=== PATIENT | female | born 1935 | race Asian ===

== ENCOUNTER 2022-02-01 16:26 | Outpatient (CLI) | payer MEDICARE, SELFPAY ==
[2022-02-01 17:22] LABS: INR 2.59 (0.91-1.10); Prothrombin Time 28.2 Seconds
== END 2022-02-01 16:27 | disposition home or self-care (01) ==
LOC: NFLDREF 16:26
PROVIDERS: PCP Internal Medicine; Visit Provider Internal Medicine
DX: I48.91 Unspecified atrial fibrillation (principal)
CPT/HCPCS: 85610

== ENCOUNTER 2022-11-07 16:36 | Outpatient (CLI) | payer MEDICARE, SELFPAY | END 2022-11-07 16:37 | disposition home or self-care (01) | PROVIDERS: PCP Internal Medicine; Visit Provider Internal Medicine | DX: I10 Essential (primary) hypertension (principal); E78.5 Hyperlipidemia, unspecified; I50.9 Heart failure, unspecified; I48.91 Unspecified atrial fibrillation | CPT/HCPCS: 80053; 80061; 85610 ==

== ENCOUNTER 2023-11-25 15:17 | Outpatient (CLI) | payer MEDICARE, SELFPAY ==
--- OUTSIDE RECORDS SUMMARY | 2023-11-25 15:21 | XMS_ITS | Encounter Summary ---
Author Organization [facility] Address [address] [place] [id number] Care Team Providers Care Calker Name Role Phone Elsewhere, Pcp Primary Care Provider Unavailabl e Encounter Details Date Type Department Care Team (Latest Contact Info) Description 09/13/2023 10:10 AM CDT - 09/13/2023 12:15 PM T Hospital Encounter Department of Laboratory Medicine and Pathology, [facility] in [place], [place] [address] [place] [address] Agnieszka Jimenez M.B.BKongS., M.H.S. 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 More than three times a week 04/01/2021 How often do you get togethe r with friends or relatives? Once a week 04/01/2021 How often do you attend [facility] or church services? 1 to 4 times per year 04/01/2021 Do you belong to any clubs o r organizations such as hindu groups, unions, fraternal or athletic groups, or school groups? No 04/01/2021 How often do you attend meet ings of the clubs or organizations you belong to? Never 04/01/2021 Are you , , di vorced, , never , or living with a partner? 04/01/2021 AUDIT-C Answer Date Recorded Q1: How often do you have a drink containing alc ohol? Never 04/01/2021 Average Number of Drinks Not on file 021 Frequency of Binge Drinking Not on file 03/05 Overall Financial Resource Strain (CARDIA) Answe r Date Recorded How hard is it for you to pa y for the very basics like food, housing, medical care, and heating? Not hard at all 02/11/2023 PHQ-2 Answer Date Recorded PHQ-2 Score 0 11/14/2018 [facility] - Occupational Stress Questionnaire Answer Date Recorded Do you feel stress - tense, restless, nervous, or anxious, or unable to sleep at night because your mind is troubled all the time - these days? Only a little 04/01/2021 Exercise Vital Sign Answer Date Recorde d On average, how many days pe r week do you engage in moderate to strenuous exercise (like a brisk walk)? 0 days 02/11/2023 On average, how many minutes do you engage in exercise at this level? 0 min 02/11/2023 Hunger Vital Sign Answer Date Recorded Within the past 12 months, y ou worried that your food would run out before you got the money to buy more. Never true 02/12/20 23 Within the past 12 months, t he food you bought just didn't last and you didn't have money to get more. Never true 02/11/2023 PRAPARE - Transportation Answer Date Re corded In the past 12 months, has l ack of transportation kept you from medical appointments or from getting medications? No 02/01 In the past 12 months, has l ack of transportation kept you from meetings, work, or from getting things needed for daily living? No 02/11/2023 Nutrition Answer Date Recorded Nutrition: EVOO Fat Source No 02/11 On average, how many serving s of fruits and vegetables do you eat per day (serving size is equal to 1 cup or approximately the size of a tennis ball)? 0-2 02/11/2023 Dental Answer Date Recorded Dental: Regular Dentist No 06/19/19 Employment Answer Date Recorded Employment status Retired 02/11/2023 Housing Stability Answer Date Recorded What is your living situation today? I have a [facility] place to live 02/11/2023 Education Answer Date Recorded What is the highest level of school you have completed or the highest degree you have received? Master's degree (e.g., MA, MS, Ela, MEd, [employer], [employer]) 04/01/2021 Sex and Gender Information Value Date Recorded Sex Assigned at Female 01/22/2018 1:18 PM CDT Gender Identity Female 01/22/2018 1:18 PM CDT Sexual Orientation Straight 01/22/2018 1: 18 PM CDT documented as of this encounter Medications at Time of Discharge Medication Sig Dispensed Refills Start Date End Date acetaminophen (TYLENOL) 500 mg tablet Take 1,000 mg by mouth as needed for pain. Taken during the day and at bedtime as needed. Twice daily calcium carbonate (OS-BHARATH) 1,250 mg (500 mg calcium) tablet Take 1 tablet by mouth 2 (two) times a day. 06/03/2014 cholecalciferol, vitamin D3, 25 mcg (1,000 Unit) tablet Take 1,000 Units by mouth daily. 02/23/2019 denosumab (PROLIA) 60 mg/mL syringe Inject 60 mg under the skin every 6 (six) months. 12/11/2016 diclofenac sodium (VOLTAREN) 1 % gel Apply topically as needed. Apply to knees as needed. 02/01/2022 fluticasone propionate (FLONASE) 50 mcg/actuation nasal spray Administer 1 spray into each nostril daily. 02/11/2023 gabapentin (NEURONTIN) 300 mg capsule Take 1 capsule (300 mg total) by mouth at bedtime. 30 capsule 01/17/2018 mirtazapine (REMERON) 15 mg tablet Take 15 mg by mouth at bedtime. montelukast (SINGULAIR) 10 mg tablet Take 10 mg by mouth at bedtime. Currently not taking 02/01/2022 multivitamin tablet Take 1 tablet by mouth daily. simvastatin (ZOCOR) 20 mg tablet Take 20 mg by mouth at bedtime. documented as of this encounter Plan of Treatment Not on file documented as of this encounter Procedures Procedure Name Priority Date/Time Associated Diagnosis Comments IRON AND TOT IRON-BINDING CAPACITY, S/P Routine 09/13/2023 11:21 AM CDT Cardiomyopathy Ischemic Chronic Systolic (Congestive) Heart Failure (HCC) Hypertensive Heart And Chronic Kidney Disease With Heart Failure And Unspecified Stage Chronic Kidney Disease (HCC) Atrial Fibrillation Unspecified (HCC) CBC WITH DIFFERENTIAL, B Routine 09/13/2023 11:21 AM CDT Cardiomyopathy Ischemic Chronic Systolic (Congestive) Heart Failure (HCC) Hypertensive Heart And Chronic Kidney Disease With Heart Failure And Unspecified Stage Chronic Kidney Disease (HCC) Atrial Fibrillation Unspecified (HCC) COMPREHENSIVE METABOLIC PANEL, S/P Routine 09/13/2023 11:21 AM CDT Cardiomyopathy Ischemic Chronic Systolic (Congestive) Heart Failure (HCC) Hypertensive Heart And Chronic Kidney Disease With Heart Failure And Unspecified Stage Chronic Kidney Disease (HCC) Atrial Fibrillation Unspecified (HCC) documented in this encounter Results * Iron and Total Iron-Binding Capacity (09/13/2023 11:21 AM CDT) Iron 85 35 - 145 mcg/dL 09/13/2023 12:23 PM CDT DTL Total Iron Binding Capacity 275 250 - 400 mcg/dL 09/13/2023 12:23 PM CDT DTL Percent Saturation 31 14 - 50 % 09/13/2023 12:23 PM CDT DTL Blood (Blood, Venous) 09/13/2023 11:21 AM CDT 09/13/2023 12:00 PM CDT Agnieszka HoskinsBKongS., M.H.S. LAB BLOOD ADD-ON [facility] [address] [place] [address], [facility] [address] [place] [address] * (ABNORMAL) CBC with Differential, Blood (09/13/2023 11:21 AM CDT) Hemoglobin 12.8 11.6 - 15.0 g/dL 09/13/2023 11:51 AM CDT DTL Hematocrit 39.8 35.5 - 44.9 % 09/13/2023 11:51 AM CDT DTL Erythrocytes 4.12 3.92 - 5.13 x10(12)/L 09/13/2023 11:51 AM CDT DTL MCV 96.6 78.2 - 97.9 fL 09/13/2023 11:51 AM CDT DTL RBC Distrib Width 12.6 12.2 - 16.1 % 09/13/2023 11:51 AM CDT DTL Platelet Count 156(L) 157 - 371 x10(9)/L 09/13/2023 11:51 AM CDT DTL Leukocytes 4.6 3.4 - 9.6 x10(9)/L 09/13/2023 11:51 AM CDT DTL Neutrophils 2.95 1.56 - 6.45 x10(9)/L 09/13/2023 11:51 AM CDT DHPM Lymphocytes 1.14 0.95 - 3.07 x10(9)/L 09/13/2023 11:51 AM CDT DTL Monocytes 0.38 0.26 - 0.81 x10(9)/L 09/13/2023 11:51 AM CDT DTL Eosinophils 0.05 0.03 - 0.48 x10(9)/L 09/13/2023 11:51 AM CDT DTL Basophils 0.03 0.01 - 0.08 x10(9)/L 09/13/2023 11:51 AM CDT DTL Blood (Blood, Venous) 09/13/2023 11:21 AM CDT 09/13/2023 11:45 AM CDT Agnieszka AlfaroS., M.H.S. LAB BLOOD ADD-ON [address] [place] [address], [place] DTL [facility] [address] [place] [address] [facility] [address] [place] [address] * (ABNORMAL) Comprehensive Metabolic Panel (09/13/2023 11:21 AM CDT) [facility] Potassium, S 4.5 3.6 - 5.2 mmol/L 09/13/2023 12:23 PM CDT DTL Sodium, S 142 135 - 145 mmol/L 09/13/2023 12:23 PM CDT DTL Chloride, S 107 98 - 107 mmol/L 09/13/2023 12:23 PM CDT DTL Bicarbonate, S 28 22 - 29 mmol/L 09/13/2023 12:23 PM CDT DTL Anion Gap 7 7 - 15 09/13/2023 12:23 PM CDT DTL BUN (Blood Urea Nitrogen), S 25(H) 6 - 21 mg/dL 09/13/2023 12:23 PM CDT DTL Creatinine 1.01 0.59 - 1.04 mg/dL 09/13/2023 12:23 PM CDT DTL Estimated GFR (eGFR) 54(L) >=60 mL/min/BS A 09/13/2023 12:23 PM CDT DTL Comment: Estimated GFR calculated using the 2020 CKD_EPI creatinine equation. Calcium, Total, S 9.6 8.8 - 10.2 mg/dL 09/13/2023 12:23 PM CDT DTL Glucose, S 93 70 - 140 mg/dL 09/13/2023 12:23 PM CDT DTL Protein, Total, S 6.2(L) 6.3 - 7.9 g/dL 09/13/2023 12:23 PM CDT DTL Albumin, S 3.7 3.5 - 5.0 g/dL 09/13/2023 12:23 PM CDT DTL Aspartate Aminotransferase (AST), S 18 8 - 43 U/L 09/13/2023 12:23 PM CDT DTL Alkaline Phosphatase, S 64 35 - 104 U/L 09/13/2023 12:23 PM CDT DTL Alanine Aminotransferase (ALT), S 12 7 - 45 U/L 09/13/2023 12:23 PM CDT DTL Bilirubin, Total, S 1.0 0.0 - 1.2 mg/dL 09/13/2023 12:23 PM CDT DTL Blood (Blood, Venous) 09/13/2023 11:21 AM CDT 09/13/2023 12:00 PM CDT Agnieszka AlfaroS., M.H.S. LAB BLOOD ADD-ON [facility] [address] [place] [address], [facility] DTL [facility] [address] [place] [address] documented in this encounter Visit Diagnoses Diagnosis Cardiomyopathy Ischemic Chronic Systolic (Congestive) Heart Failure (HCC) Hypertensive Heart And Chronic Kidney Disease With Heart Failure And Unspecified Stage Chronic Kidney Disease (HCC) Atrial Fibrillation Unspecified (HCC) documented in this encounter Care Teams Calker Relationship Specialty Start Date End Date Elsewhere, Pcp PCP - General Family Medicine 01/14/18 documented as of this encounter
--- OUTSIDE RECORDS SUMMARY | 2023-11-25 15:21 | XMS_ITS | Clinical Summary ---
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 For routine questions regarding patient records, call [phone] during business hours, M-F 8:00 AM - 5:00 PM Central Time. Record requests for emergency care only can be directed to [phone] at any time.[facility] Allergies No known active allergies Medications Medication Sig Dispensed Refills Start Date End Date Status mirtazapine (REMERON) 15 mg tablet Take 15 mg by mouth at bedtime. Active simvastatin (ZOCOR) 20 mg tablet Take 20 mg by mouth at bedtime. Active multivitamin tablet Take 1 tablet by mouth daily. Active acetaminophen (TYLENOL) 500 mg tablet Take 1,000 mg by mouth as needed for pain. Taken during the day and at bedtime as needed. Twice daily Active gabapentin (NEURONTIN) 300 mg capsule Take 1 capsule (300 mg total) by mouth at bedtime. 30 capsule 01/17/2018 Active cholecalciferol, vitamin D3, 25 mcg (1,000 Unit) tablet Take 1,000 Units by mouth daily. 02/23/2019 Active calcium carbonate (OS-BHARATH) 1,250 mg (500 mg calcium) tablet Take 1 tablet by mouth 2 (two) times a day. 06/03/2014 Active denosumab (PROLIA) 60 mg/mL syringe Inject 60 mg under the skin every 6 (six) months. 12/11/2016 Active montelukast (SINGULAIR) 10 mg tablet Take 10 mg by mouth at bedtime. Currently not taking 02/01/2022 Active diclofenac sodium (VOLTAREN) 1 % gel Apply topically as needed. Apply to knees as needed. 02/01/2022 Active fluticasone propionate (FLONASE) 50 mcg/actuation nasal spray Administer 1 spray into each nostril daily. 02/11/2023 Active isosorbide mononitrate (IMDUR) 60 mg 24 hr tablet Take 1 tablet (60 mg total) by mouth daily. 90 tablet 3 09/13/2023 09/12/2024 Active Eliquis 2.5 mg tablet Take 1 tablet (2.5 mg total) by mouth 2 (two) times a day. 180 tablet 3 09/13/2023 09/12/2024 Active losartan (COZAAR) 100 mg tablet Take 1 tablet (100 mg total) by mouth daily. 90 tablet 3 09/13/2023 09/12/2024 Active carvediloL (COREG) 3.125 mg tabletIndications:C ardiomyopathy Ischemic,Chronic Systolic (Congestive) Heart Failure (HCC),Hypertensive Heart And Chronic Kidney Disease With Heart Failure And Unspecified Stage Chronic Kidney Disease (HCC),Atrial Fibrillation Unspecified (HCC) Take 1 tablet (3.125 mg total) by mouth 2 (two) times a day with meals. 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 Heart And Chron ic Kidney Disease With Heart Failure And Unspecified Stage Chronic Kidney Disease 01/13/2018 Overview: -likely element of white coat hypertension Regurgitation Mitral 01/13/2018 Last Assessment & Plan: -mitral valve prolapse, elected for conservative management -possible rheumatic changes/no known rheumatic heart disease history Atrial Fibrillation 01/13/2018 Overview: -persistent AF, asymptomatic Chronic Kidney Disease (CKD), Stage 3 Unspecifie d 01/13/2018 Dyslipidemia 01/13/2018 Osteoporosis 01/13/2018 Goiter Multinodular Nontoxic 03/20/2016 Overview: Overview: 12/2015: US (outside facility) 4.8 cm mixed solid/cystic R Thyroid nodule with rim calcification and 2 small 6 mm lesions in left lobe. FNA non diagnostic 09/2016: US 3.5 x 2.0x 2.8 cm R sided nodule, rest same Cardiomyopathy Ischemic 10/29/2013 Overview: -NYHA class 2 [facility] (Current) Anticoagulant Treatment 10/02 Encounters Date Type Department Care Team Description 09/13/2023 3:00 PM CDT Office Visit Department of Cardiovascular Medicine in [place], [place] [address] [place] [phone] Rob Cortes M.D. Failure Heart (HCC); Cardiomyopathy Ischemic; Chronic Systolic (Congestive) Heart Failure (HCC); Hypertensive Heart And Chronic Kidney Disease With Heart Failure And Unspecified Stage Chronic Kidney Disease (HCC); Atrial Fibrillation Unspecified (HCC) 09/13/2023 12:16 PM CDT - 09/13/2023 11:59 PM CDT Hospital Encounter Department of Cardiovascular Diseases in [place], [place] [address] [place] [phone] Rob Cortes M.D. Failure Heart (HCC) Discharge Disposition: Home or Self Care 09/13/2023 10:10 AM CDT - 09/13/2023 12:15 PM CDT Hospital Encounter Department of Laboratory Medicine and Pathology, [facility] in [place], [place] [address] [place] [address] Agnieszka Jimenez M.B.B.S., M.H.S. Cardiomyopathy Ischemic; Chronic Systolic (Congestive) Heart Failure (HCC); Hypertensive Heart And Chronic Kidney Disease With Heart Failure And Unspecified Stage Chronic Kidney Disease (HCC); Atrial Fibrillation Unspecified (HCC) Discharge Disposition: Home or Self Care from Last 3 Months Immunizations Name Administration Dates Next Due Influenza high dose QV(65 years or older) (PF) 0 01/31/2021 MCV4 (Menveo) 05/01/2019 PCV13 05/21/2016,01/14/2015 PPSV23 12/11/2016 SARS-COV-2 (COVID-19) - PFIZ ER (Discontinued)(12 years or older) 04/06/2021 Tdap 09/27/2015 Family History Medical History Relation Name Comments Heart disease Mother Relation Name Status Comments Mother Social History Tobacco Use Types Packs/Day Years Used Date Smoking Tobacco: Never Smokeless Tobacco: Never Tobacco Cessation:Counseling Given: Not Answered Alcohol Use Standard Drinks/Week Comments No 0 [...] week 04/01/2021 How often do you attend chur ch or mosque services? 1 to 4 times per year 04/01/2021 Do you belong to any clubs o r organizations such as bahai groups, unions, fraternal or athletic groups, or [...] Answer Date Recorded PHQ-2 Score 0 11/14/2018 [facility] [place] [facility] Occup[facility] - Occupational Stress Questionnaire Answer Date Recorded [...] money to buy more. Never true 02/12/20 Within the past 12 months, t he [...] your living situation today? I have a [facility] place to live 02/11/2023 Education Answer Date Recorded What is the highest level of school you have completed or the highest degree you have received? Master's degree (e.g., MA, MS, Ela, MEd, [employer], [employer]) 04/01/2021 Sex and Gender Information Value Date Recorded Sex Assigned at Female 01/22/2018 1:18 PM CDT Gender Identity Female 01/22/2018 1:18 PM CDT Sexual Orientation Straight 01/22/2018 1: 18 PM CDT Last Filed Vital Signs Vital Sign Reading Time Taken Comments Blood Pressure 123/74 09/13/2023 3:07 PM CDT Pulse 80 09/13/2023 3:07 PM CDT Temperature 36.4 ??C (97.52 ??F) 01/17/2018 2:42 PM C DT Respiratory Rate 16 01/17/2018 2:42 PM CDT Oxygen Saturation 95% 01/17/2018 2:42 PM CDT Inhaled Oxygen Concentration - - Weight 62.2 kg (137 lb 2 oz) 09/13/2023 3:07 PM CDT Height 146 cm (4' 9.48) 09/13/2023 3:07 PM CDT Body Mass Index 29.18 09/13/2023 3:07 PM CDT Plan of Treatment Health Maintenance Due Date Last Done Comments Zoster Vaccines (1 of 2) 08/05/1985 Depression Screening (Annual PHQ-2) 06/03/2023 COVID-19 Vaccine (2022-2 4 season) 2023 08/21/2023, 04/29/2022, 04/06/2021, Additional history exists Creatinine Level (Kidney Fun ction Test) 09/12/2024 09/13/2023, 2023, 08/05/2023, Additional history exists Potassium Level 09/12/2024 09/13/2023, 03/0 10/2023, 08/05/2023, Additional history exists Sodium Level 09/12/2024 09/13/2023, 03/0 10/2023, 08/05/2023, Additional history exists DTaP,Tdap,and Td Vaccines (2 - Td or Tdap) 09/26/2025 09/27/2015 Influenza Vaccine Completed 03/22/2023, , 01/31/2021, Additional history exists Pneumococcal vaccine (65+ years) Completed 08/20/2023, 12/11/2016, 05/21/2016, Additional history exists Fall Risk Screen (Annual) Completed 09/13/2023 Procedures Procedure Name Priority Date/Time Associated Diagnosis Comments (TTE) 2D ECHO DOPPLER COLOR Routine 09/13/2023 1:47 PM CDT Failure Heart (HCC) IRON AND TOT IRON-BINDING CAPACITY, S/P Routine [...] Kidney Disease (HCC) Atrial Fibrillation Unspecified (HCC) from Last 3 Months Results * (TTE) 2D ECHO DOPPLER COLOR (09/13/2023 1:47 PM CDT) Ejection Fraction 45 MC CV EIMS Sinus of Valsalva 30 MC CV EIMS Mid-Ascending Aorta 26 MC CV EIMS Wall Motion Score Index 1.94 MC CV EIMS LV Mass Index 80 MC CV EIMS LV End-Diastolic Diameter 52 MC CV EIMS LV End-Systolic Diameter 42 MC CV EIMS LV End-Diastolic Volume 109 MC CV EIMS LV End-Systolic Volume 60 MC CV EIMS MV E Velocity 1.2 MC CV EIMS MV e' Velocity Medial 0.06 MC CV EIMS MV e' Velocity Lateral 0.06 MC CV EIMS MV E/e' Medial 20 MC CV EIMS MV E/e' Lateral 20 MC CV EIMS Left ventricular stroke volume index 25 MC CV EIMS Cardiac Output 2.51 MC CV EIMS Cardiac Index 1.64 MC CV EIMS LV Interventricular Septal Wall Thickness 7 MC CV EIMS LV Posterior Wall Thickness 7 MC CV EIMS LV Relative Wall Thickness 27 MC CV EIMS Tricuspid Annular S? 0.08 MC CV EIMS TR Vmax 2.38 MC CV EIMS RA Pressure 5 MC CV EIMS RV Systolic Pressure 28 MC CV EIMS Estimated diastolic pulmonary artery pressure 10 MC CV EIMS AV mean gradient 2 MC CV EIMS Aortic valve area 1.94 MC CV EIMS Aortic Valve Dimensionless Index 0.68 MC CV EIMS LA Volume Index 96 MC CV EIMS Aortic Valve Systolic Peak Velocity 0.8 MC CV EIMS Anatomical Region Laterality Modality Echocardiography 09/13/2023 12:2 7 PM CDT Impressions 09/13/2023 2:04 PM CDT Status post stenting to the ostial, mid/proximal LAD (10/29/2013, elsewhere). LEFT VENTRICLE:Normal left ventricular chamber size. Normal left ventricular geometry. Calculated 2-D biplane volumetric left ventricular ejection fraction of 45% without the use of ultrasound enhancing agent. Regional wall motion abnormalities were present (see wall motion graphics). Apical left ventricular aneurysm. Normal left ventricular filling pressure. RIGHT VENTRICLE:Normal right ventricular chamber size. Normal right ventricular systolic function. Estimated right ventricular systolic pressure 28 mmHg (right atrial pressure of 5 mmHg). ATRIA:Severely enlarged left atrial size. Left atrial volume index 96 ml/m2. Strain imaging examination performed to assess left atrial function. Global averaged left atrial biplane longitudinal peak systolic strain is abnormal at 7.0% (normal is greater than 35%). Severely enlarged right atrial size by visual estimate. CARDIAC VALVES:Trileaflet aortic valve. Thickened aortic valve. No aortic valve regurgitation. Mild mitral valve regurgitation. Normal pulmonary valve. Normal pulmonary valve systolic velocities. Mild-moderate pulmonary valve regurgitation. Normal tricuspid valve. Trivial tricuspid valve regurgitation. OTHER ECHO FINDINGS:Normal inferior vena cava size with normal inspiratory collapse (>50%). Normal sinus of Valsalva diameter of 30 mm. Normal mid ascending aorta diameter of 26 mm. Abdominal aorta not visualized. No atrial level shunt by color flow imaging. No ??pericardial effusion. For the complete report, see the Order-Level Documents. Narrative 09/13/2023 2:04 PM CDT For the complete report, see the Order-Level Documents. Hemodynamics Heart Rate: 65 BPM Blood Pressure: 126 / 80 mmHg ECG: Atrial fibrillation Final Impressions 1. Normal left ventricular chamber size. Regional wall motion abnormalities present (see graphics). Calculated ejection fraction 45%. 2. Left ventricular cardiac index 1.64 l/min/m2. 3. Normal left ventricular filling pressure based on RVSP. 4. Normal right ventricular chamber size with normal systolic function. Estimated right ventricular systolic pressure 28 mmHg. 5. Mild mitral valve regurgitation (functional). 6. Severely enlarged left atrial size; severe right atrial enlargement. 7. Normal mid ascending aorta diameter of 26 mm. 8. Normal inferior vena cava size with normal inspiratory collapse (>50%). 9. No ??pericardial effusion. 10. Compared to the report of 04/27/2022 the following changes have occurred: the degree of mitral regurgitation has decreased. ??Side by side comparison of images performed. Comments Although the color Doppler evaluation could suggest more MR, the CW signal was faint and the LV stroke volume by volumetric method is not compatible with significant regurgitation. WRM. Procedure Note Abdi Blue M.D. - 09/13/2023 For the complete report, see the Order-Level Documents. Hemodynamics Heart Rate: 65 BPM Blood Pressure: 126 / 80 mmHg ECG: Atrial fibrillation Final Impressions 1. Normal left ventricular chamber size. Regional wall motionabnormalities present (see graphics). Calculated ejection fraction 45%. 2. Left ventricular cardiac index 1.64 l/min/m2. 3. Normal left ventricular filling pressure based on RVSP. 4. Normal right ventricular chamber size with normal systolic function.Estimated right ventricular systolic pressure 28 mmHg. 5. Mild mitral valve regurgitation (functional). 6. Severely enlarged left atrial size; severe right atrial enlargement. 7. Normal mid ascending aorta diameter of 26 mm. 8. Normal inferior vena cava size with normal inspiratory collapse(>50%). 9. No pericardial effusion. 10. Compared to the report of 04/27/2022 the following changes haveoccurred: the degree of mitral regurgitation has decreased. Side by sidecomparison of images performed. Comments Although the color Doppler evaluation could suggest more MR, the CW signalwas faint and the LV stroke volume by volumetric method is not compatiblewith significant regurgitation. WRM. Findings Status post stenting to the ostial, mid/proximal LAD (10/29/2013,elsewhere). LEFT VENTRICLE:Normal left ventricular chamber size. Normal leftventricular geometry. Calculated 2-D biplane volumetric left ventricularejection fraction of 45% without the use of ultrasound enhancing agent.Regional wall motion abnormalities were present (see wall motiongraphics). Apical left ventricular aneurysm. Normal left ventricularfilling pressure. RIGHT VENTRICLE:Normal right ventricular chamber size. Normal rightventricular systolic function. Estimated right ventricular systolicpressure 28 mmHg (right atrial pressure of 5 mmHg). ATRIA:Severely enlarged left atrial size. Left atrial volume index 96ml/m2. Strain imaging examination performed to assess left atrialfunction. Global averaged left atrial biplane longitudinal peak systolicstrain is abnormal at 7.0% (normal is greater than 35%). Severely enlargedright atrial size by visual estimate. CARDIAC VALVES:Trileaflet aortic valve. Thickened aortic valve. No aorticvalve regurgitation. Mild mitral valve regurgitation. Normal pulmonaryvalve. Normal pulmonary valve systolic velocities. Mild-moderate pulmonaryvalve regurgitation. Normal tricuspid valve. Trivial tricuspid valveregurgitation. OTHER ECHO FINDINGS:Normal inferior vena cava size with normal inspiratorycollapse (>50%). Normal sinus of Valsalva diameter of 30 mm. Normal midascending aorta diameter of 26 mm. Abdominal aorta not visualized. Noatrial level shunt by color flow imaging. No pericardial effusion. For the complete report, see the Order-Level Documents. Rob Cortes M.D. CV ECHO PROCEDURES * Iron and Total Iron-Binding Capacity (09/13/2023 11:21 AM CDT) [facility] Iron 85 35 - 145 mcg/dL 09/13/2023 12:23 PM CDT DTL Total Iron Binding Capacity 275 250 - 400 mcg/dL 09/13/2023 12:23 PM CDT DTL Percent Saturation 31 14 - 50 % 09/13/2023 12:23 PM CDT DTL Blood (Blood, Venous) 09/13/2023 11:21 AM CDT 09/13/2023 12:00 PM CDT Agnieszka Hand., M.H.S. LAB BLOOD ADD-ON [facility] [address] [place] [address], [facility] [address] [place] [address] * (ABNORMAL) CBC with Differential, Blood (09/13/2023 11:21 AM CDT) [facility] Hemoglobin 12.8 11.6 - 15.0 g/dL 09/13/2023 [...] AM CDT 09/13/2023 11:45 AM CDT Agnieszka Hand., M.H.S. LAB BLOOD ADD-ON [facility] [address] [place] [address], [place] DTL [facility] [address] [place] [address] [facility] [address] [place] [address] * (ABNORMAL) Comprehensive Metabolic Panel (09/13/2023 11:21 AM CDT) [facility] Potassium, S 4.5 3.6 - 5.2 mmol/L [...] AM CDT 09/13/2023 12:00 PM CDT Agnieszka Hand., M.H.S. LAB BLOOD ADD-ON [facility] [address] [place] [address], [place] DTL [facility] [address] [place] [address] from Last 3 Months Advance Directives For more information, please contact: [phone] * Full Code (Latest Code Status on File) Date Activated Date Inactivated Comments 01/17/2018 10:34 AM Question Answer Comments Full Code: Discussed * Full Code Date Activated Date Inactivated Comments 01/13/2018 8:41 PM 01/17/2018 10:34 AM Question Answer Comments Full Code: Discussed Care Teams After [employer] Teacher Relationship Specialty Start Date End Date Elsewhere, Pcp PCP - General Family Medicine 01/14/18
--- OUTSIDE RECORDS SUMMARY | 2023-11-25 15:21 | XMS_ITS | Clinical Summary ---
Author Organization [employer] [facility] Address [place], [place] [address] Care Team Providers Care Rural Carrier Name Role Phone Siddharth Elizabeth Unavailable [phone] Yessy Yan MD Primary Care Provider [phone] Allergies Active Allergy Reactions Criticality Noted Date Comments Memantine *Unknown - Pt Doesn't Remember 11/27 Medications Medication Sig Dispensed Refills Start Date End Date Status metoprolol succinate (TOPROL XL) 25 mg Sustained-Release tabletIndications:vent ricular rate control in atrial fibrillation Take 1 tablet by mouth once daily. 0 09/29/2013 Active simvastatin (ZOCOR) 20 mg tabletIndications:hype rlipidemia Take 1 tablet by mouth at bedtime. 0 09/29/2013 Active Calcium carbonate (OYSTERSHELL CALCIUM) 500 mg tabletIndications:hypo calcemia prevention Take 1 tablet by mouth 2 times daily with meals. 0 09/29/2013 Active multivitamin (MVI) tabletIndications:elisabeth min deficiency prevention Take 1 tablet by mouth once daily. 0 09/29/2013 Active gabapentin (NEURONTIN) 300 mg capsuleIndications:nessa ropathic pain Take 300 mg by mouth once daily in the evening. 0 Active cholecalciferol (VITAMIN D) 1,000 unit tabletIndications:prev ention of vitamin D deficiency Take 1 tablet by mouth once daily. 0 02/23/2019 Active mirtazapine (REMERON) 15 mg tabletIndications:michael r depressive disorder Take 1 Tablet (15 mg) by mouth at bedtime. 1 11/24/2020 Active losartan (COZAAR) 100 mg tabletIndications:hype rtension Take 1 Tablet (100 mg) by mouth once daily. 90 Tablet 3 02/17/2021 Active isosorbide mononitrate (IMDUR) 30 mg extended release tablet 24 HourIndications:Hypert nesion Take 60 mg by mouth once daily. 0 09/12/2021 Active benzonatate (Tessalon Perles) 100 mg capsuleIndications:Inf luenza A Take 1 Capsule (100 mg) by mouth 3 times daily if needed for Cough. 2023 Active albuterol 0.083% (2.5 mg/3 mL) neb solutionIndications:In fluenza A Inhale 3 mL (2.5 mg) via a nebulizer every 4 hours if needed for Wheezing 1st choice. 2023 Active guaiFENesin 100 mg/5 mL liquidIndications:Infl uenza A Take 5 mL (100 mg) by mouth every 4 hours if needed for Expectoration. 2023 Active apixaban (ELIQUIS) 5 mg tabletIndications:prev ent thromboembolism in chronic atrial fibrillation Take 1 Tablet (5 mg) by mouth two times daily. 2023 Active Active Problems Problem Noted Date Diagnosed Date CAP (community acquired pneumonia) 2023 Influenza 08/02/2023 Acute respiratory insufficiency 08/02/2023 Chronic systolic heart failure 08/02/2023 Age-related osteoporosis wit hout current pathological fracture 09/18/2016 Overview: History of Osteoporosis, rheumatoid arthritis, compression fracture, lost 2 in, has yogurt, calcium, vD daily. vD 29 => 39, Calcium 9.1, Creatinine 1.15, PTH 67, ELP normal. Timed urine Calcium 134 mg 11/2015: DXA: T scores; Spine -1.0, Femoral neck, L -1.8, FRAX: Total 26%, Hip 6.91% Rx Prolia 12/2016: DXA: T scores; Spine +1.9, Femoral neck, L -1.8, R -3.2, Total Femur, L -1.6, R -2.8. (DJD Spine) 03/2021: DXA: T scores; Spine +2.4, Femoral neck, L -2.5, R -2.6, Total Femur, L -2.0, R -2.5. 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 FNA non diagnostic 09/2016: US 3.5 x 2.0 x 2.8 cm R sided nodule, rest same 02/2019: 3.4 x 2.1 x 2.7 cm, T1-RADS 4. mid right lobe (no change since 2015) 10/2022: Right mid to lower lobe nodule measuring 3.9 x 3.0 x 2.4 cm. Solid. Peripheral (rim) calcifications. TI-RADS 4. Lower left lobe nodule 0.6 x 0.4 x 0.5 cm, solid, TI-RADS 4 Heart failure, left, with LVEF 31-40% 10/29/2013 CAD (coronary artery disease) 10/29/2013 CKD (chronic kidney disease) stage 2, GFR 60-89 ml/min 10/29/2013 Hypertension 10/29/2013 Dyslipidemia 10/29/2013 Atrial fibrillation 10/29/2013 Chronic anticoagulation 10/29/2013 S/P coronary angiogram with PTCA and placement of drug-eluting stents to the ostial, mid/proximal LAD 10/29/2013 Mitral regurgitation 10/08/2013 Encounters Date Type Department Care Team Description 10/17/2023 Telephone [facility] [place] [facility] [address] [place] [address] Remedios Cassidy DO Injection (Medication) (Prolia) from Last 3 Months Immunizations Name Administration Dates Next Due COVID-19 vaccine (Alex and Ani 30mcg/0.3mL) P F, MDV 08/23/2020,08/02/2020 Influenza, Inactivated AIIV4 (Age 65+ Years) Preserv Free 03/21/2022 Social History Tobacco Use Types Packs/Day Years Used Date Smoking Tobacco: Never Smokeless Tobacco: Former Tobacco Cessation:Counseling Given: Yes Alcohol Use Standard Drinks/Week Comments No 0 (1 standard drink = 0.6 oz pur e alcohol) Social Connections Answer Date Recorded Frequency of Communication with Friends and Fami ly Not on file 06/03/2021 Financial Resource Strain Answer Date R ecorded Difficulty of Paying Living Expenses Not on file 06/03/2021 Difficulty of Paying Living Expenses Not on file 06/03/2021 Sex and Gender Information Value Date Recorded Sex Assigned at Not on file Gender Identity Not on file Sexual Orientation Not on file Obstetrics History Last Filed Vital Signs Vital Sign Reading Time Taken Comments Blood Pressure 123/67 2023 5:[address] [place] Pulse 59 2023 5:[address] [place] Temperature 37 ??C (98.6 ??F) 2023 8:[address] [place] Respiratory Rate 16 2023 5:[address] [place] Oxygen Saturation 95% 2023 1:[address] [place] Inhaled Oxygen Concentration - - Weight 63.5 kg (140 lb) 08/02/2023 2:[address] [place] Height 160 cm (5' 3) 08/02/2023 2:[address] [place] Body Mass Index 24.8 08/02/2023 2:[address] [place] Plan of Treatment Upcoming Encounters Date Type Department Care Team (Late st Contact Info) Description 02/18/2024 10:30 AM CDT Office Visit [facility] [address] [facility] [address] [place] [address] Remedios Cassidy DO [address] [place] [address] Health Maintenance Due Date Last Done Comments Pneumococcal series for age 65+ (1 of 2 - PCV) 08/05/1941 Tdap 08/05/1946 Depression screening for age 12+ 1947 Tetanus booster 1955 Zoster (shingles) series for age 50+ (1 of 2) 08/05/1985 Medicare Wellness for age 65+ 08/05/2000 BMI (ht and wt on same day) for age 18+ 02/17/2022 02/17/2021, 11/24/2020, 08/08/2017, Additional history exists COVID-19 vaccine series ( season) 2023 04/29/2022, 04/06/2021, 08/23/2020, Additional history exists Influenza for age 65+ 02/02/2024 03/21/2022 , 03/09/2016 [facility] DEXA/DXA scan for age 65+ Completed 03/13/2021, Procedures Procedure Name Priority Date/Time Associated Diagnosis Comments XR DXA BONE DENSITY 2 SITES AXIAL Routine 03/13/2021 4:22 PM CDT Age-related osteoporosis without current pathological fracture from Last 3 Months or Most Recently Relevant to Health Maintenance Results * XR DXA BONE DENSITY 2 SITES AXIAL (03/13/2021 4:22 PM CDT) Anatomical Region Laterality Modality Spine, HIPS, HIPL, HIPR Computed Radiography Impressions 03/14/2021 7:05 AM CDT Osteoporosis. RECOMMENDATIONS: The National Osteoporosis Foundation recommends pharmacologic treatment for patients with T-scores of -2.5 or less, patients with prior history of fragility fractures, or patients with 10-year probability of greater than 3% at hips or greater than 20% of suffering major osteoporotic fractures. Recommend continued optimization of calcium and vitamin D intake through dietary means and/or supplementation and regular exercise. Continue current Denosumab (Prolia) medication treatment. ?? Jose Quiles MD 03/14/2021 7:05 AM Narrative 03/14/2021 7:05 AM CDT For Patients: Results are automatically released to your [employer] account once available, in compliance with federal regulations. This means that you may see your results before your provider has had a chance to review them. Please allow 2-3 business days for your provider to comment on the results. XR DXA Bone Mineral Density (BMD) EXAM LOCATION: [facility] [address] [facility] [address] [facility] [id number] PATIENT NAME: Enzo Barrow DATE OF : 1935 EXAM DATE: 03/13/2021 REQUESTING PROVIDER: Rajendra Cassidy MBBS GENDER AT : female HEIGHT: 5' 4 (02/17/2021) WEIGHT: ??147 lb (03/13/2021) MENOPAUSAL STATUS: Postmenopausal RACE/ETHNICITY: RISK FACTORS: Family History of Osteoporosis, Height Loss (2 inches or more) and History of Fragility Fracture (at a major site) CURRENT MEDICATION FOR BONE LOSS: Denosumab (Prolia) INDICATION: Follow-up of existing osteoporosis COMPARISON DATE(S): None DXA scans are compared to prior studies for a patient only when the two (or more) studies were performed on the same scanner. It is not possible to compare data generated on one scanner to data from another because there are not standards in DXA equipment. This applies even if the two scanners are made by the same retail sales teammate. PROCEDURE: Dual-energy x-ray absorptiometry performed with routine technique. Reporting is completed in the form of a T-score. The T-score represents the standard deviation from peak bone mass based on young healthy adult. A Z-score is used for diagnosis in premenopausal women, and for men under the age of 50. FINDINGS: RESULT LUMBAR SPINE L1 - L4 BMD: 1.474 g/cm2 T-Score: + 2.4 Z-Score: + 4.1 Marked sclerotic changes increase measured bone mineral density at this site. RESULTS FEMUR Left femoral neck BMD: 0.688 g/cm2 T-Score: - 2.5 Z-Score: - 0.3 Right femoral neck BMD: 0.670 g/cm2 T-Score: - 2.6 Z-Score: - 0.4 Left hip BMD: 0.751 g/cm2 T-Score: - 2.0 Z-Score: + 0.1 Right hip BMD: 0.689 g/cm2 T-Score: - 2.5 Z-Score: - 0.4 ?? WHO criteria: Normal: T-score at or above -1 SD Osteopenia: T-score between -1.1 and -2.4 SD Osteoporosis: T-score at or below -2.5 SD Rajendra CARRANZA DEXA from Last 3 Months or Most Recently Relevant to Health Maintenance Advance Directives * Full Code (Latest Code Status on File) Date Activated Date Inactivated Comments 08/02/2023 5:59 PM 2023 7:43 PM Question Answer Comments Code Status Discussion: Reviewed Preferences * Full Code Date Activated Date Inactivated Comments 08/02/2023 5:10 PM 08/02/2023 5:59 PM Question Answer Comments Code Status Discussion: Unable to Assess Preferences, Provider to review later * Full Code Date Activated Date Inactivated Comments 10/29/2013 9:25 AM 10/30/2013 4:38 PM * Full Code Date Activated Date Inactivated Comments 10/07/2013 8:48 AM 10/07/2013 11:26 PM Care Teams Rural Carrier Relationship Specialty Start Date End Date Yessy Yan MD [address] [place] [address] PCP - General 11/24/20 Siddharth Elizabeth MBBS Consulting Physician Cardiovascular Disease 09/29/13
--- OUTSIDE RECORDS SUMMARY | 2023-11-25 15:21 | XMS_ITS | Referral Summary ---
Author Organization [facility] Address [address] [place] [address] Care Team Providers Care Resident Intern Name Role Phone Elsewhere, Pcp Primary Care Provider Unavailabl e Source Comments Patient records contain information from all sites at [facility]. For routine questions regarding patient records, call [phone] during business hours, M-F 8:00 AM - 5:00 PM Central Time. Record requests for emergency care only can be directed to [phone] at any time.[facility] Encounters Date Type Department Care Team Description 09/13/2023 10:10 AM CDT - 09/13/2023 12:15 PM CDT Hospital Encounter Department of Laboratory Medicine and Pathology, [facility], in [place], [place] [address] [place] [address] Agnieszka Jimenez M.B.BKongS., M.H.S. Cardiomyopathy Ischemic; Chronic Systolic (Congestive) Heart Failure (HCC); Hypertensive Heart And Chronic Kidney Disease With Heart Failure And Unspecified Stage Chronic Kidney Disease (HCC); Atrial Fibrillation Unspecified (HCC) Discharge Disposition: Home or Self Care 09/13/2023 12:16 PM CDT - 09/13/2023 11:59 PM CDT Hospital Encounter Department of Cardiovascular Diseases in [place], [place] [address] [place] [address] Rob Cortes M.D. Failure Heart (HCC) Discharge Disposition: Home or Self Care 09/13/2023 3:00 PM CDT Office Visit Department of Cardiovascular Medicine in [place], [place] [address] [place] [address] oRb Cortes M.D. Failure Heart (HCC); Cardiomyopathy Ischemic; Chronic Systolic (Congestive) Heart Failure (HCC); Hypertensive Heart And Chronic Kidney Disease With Heart Failure And Unspecified Stage Chronic Kidney Disease (HCC); Atrial Fibrillation Unspecified (HCC) from Last 3 Months Allergies No known active allergies Medications Medication [...] Back 01/13/2018 Atherosclerotic Heart Diseas e Of [place] Coronary Artery Without Angina Pectoris 01/13/2018 Hypertensive [...] Cardiomyopathy Ischemic 10/29/2013 Overview: -NYHA class 2 Senior Care (Current) Anticoagulant Treatment 10/02 Immunizations Name Administration Dates Next Due Influenza high dose QV(65 years or older) (PF) 0 01/31/2021 MCV4 (Menveo) 05/01/2019 PCV13 05/21/2016,01/14/2015 PPSV23 12/11/2016 SARS-COV-2 (COVID-19) - PFIZ ER (Discontinued)(12 years or older) 04/06/2021 Tdap 09/27/2015 Social History Tobacco Use Types Packs/Day Years [...] often do you attend chur ch or orthodoxy services? 1 to 4 times per year 04/01/2021 Do you belong to any clubs o r organizations such as baptism groups, unions, fraternal or athletic groups, or [...] Answer Date Recorded PHQ-2 Score 0 11/14/2018 [facility] of Occupat ional Health - Occupational Stress [...] your living situation today? I have a [facility] 02/11/2023 Education Answer Date Recorded What is the highest level of school you have completed or the highest degree you have received? Master's degree (e.g., MA, MS, Ela, MEd, LOAN COLLECTOR, [employer]) 04/01/2021 Sex and Gender Information Value [...] 09/13/2023 3:07 PM CDT Plan of Treatment Not on file Procedures Procedure Name Priority Date/Time Associated Diagnosis [...] CDT Agnieszka Hand., M.H.S. LAB BLOOD ADD-ON [facility] [address] [place] [address], [facility] DTL [facility] [address] [place] [address] * (ABNORMAL) CBC with Differential, Blood (09/13/2023 [...] CDT Agnieszka Hand., M.H.S. LAB BLOOD ADD-ON [facility] [address] [place] [address], [facility] DTL [facility] [address] [place] [address] [facility] [address] [place] [address] * (ABNORMAL) Comprehensive Metabolic Panel (09/13/2023 11:21 AM CDT) Pathologist [facility] Potassium, S 4.5 3.6 - 5.2 [...] CDT Agnieszka AlfaroS., M.H.S. LAB BLOOD ADD-ON [facility] [address] [place] [address], [place] DTL [facility] [address] [place] [address] from Last 3 Months Advance Directives For more information, please contact: [phone] * Full Code (Latest Code Status on File) Date Activated Date Inactivated Comments 01/17/2018 10:34 AM Question Answer Comments Full Code: Discussed * Full Code Date Activated Date Inactivated Comments 01/13/2018 8:41 PM 01/17/2018 10:34 AM Question Answer Comments Full Code: Discussed Care Teams Resident Intern Relationship Specialty Start Date End Date Elsewhere, Pcp PCP - General Family Medicine 01/14/18
--- OUTSIDE RECORDS SUMMARY | 2023-11-25 15:21 | XMS_ITS ---
Author Organization [facility] Address [address] [place] [address] Care Team Providers Care Horse Stud Worker Name Role Phone Unavailable Unavailable Unavailable Surgery Details Not on file Complications Check Surgery Details section. Procedure Estimated Blood Loss Check Surgery Details section. Procedure Findings Check Surgery Details section. Procedure Specimens Taken Check Surgery Details section.
--- OUTSIDE RECORDS SUMMARY | 2023-11-25 15:21 | XMS_ITS | Referral Summary ---
Author Organization [facility] Address [address] [place] [address] Care Team Providers Care Raw Hide Trimmer Name Role Phone [facility] Primary Care Prov ider Resolved Problems Problem Noted Date Diagnosed Date Resolved Date Lumbago 10/29/2017 03/03/2018 Social History Tobacco Use Types Packs/Day Years Used Date Smoking Tobacco: Never Assessed Sex and Gender Information Value Date Recorded Sex Assigned at Not on file Gender Identity Not on file Sexual Orientation Not on file Plan of Treatment Not on file Care Teams Raw Hide Trimmer Relationship Specialty Start Date End Date [address] [address] PCP - General 10/29/17
--- OUTSIDE RECORDS SUMMARY | 2023-11-25 15:21 | XMS_ITS | Clinical Summary ---
Author Organization [facility] Address [address] [place] [address] Care Team Providers Care Rv Repairer Name Role Phone [facility] Primary Care Prov ider Resolved Problems Problem Noted Date Diagnosed Date Resolved Date Lumbago 10/29/2017 03/03/2018 Social History Tobacco Use Types Packs/Day Years Used Date Smoking Tobacco: Never Assessed Sex and Gender Information Value Date Recorded Sex Assigned at Not on file Gender Identity Not on file Sexual Orientation Not on file Plan of Treatment Not on file Care Teams Rv Repairer Relationship Specialty Start Date End Date [address] [address] PCP - General 10/29/17
--- OUTSIDE RECORDS SUMMARY | 2023-11-25 15:22 | XMS_ITS | Encounter Summary ---
Author Organization [facility] Address [address] [place] [address] Care Team Providers Care Superintendent Overhead Distribution Name Role Phone Elsewhere, Pcp Primary Care Provider Unavailabl e Reason for Referral * Outpatient (Routine) - Closed Specialty Diagnoses / Procedures Referred By Contac t Referred To Contact Diagnoses Failure Heart (HCC) Procedures Echo Transthoracic (TTE) Rob Cortes M.D. [address] [place] [address] [facility] Referral ID Status Reason Start Date Expiration Date Visits Re quested Visits Authorized [id number] Closed 08/09/2023 08/08/2024 [address] Reason for Visit * Reason Onset Date Comments Echo Move Up Request 08/09/2023 Encounter Details Date Type Department Care Team (Latest Contact Info) Description 08/09/2023 Clinical Communication Department of Cardiovascular Medicine in [place], [place] [address] [place] [phone] Rob Cortes M.D. [address] [place] [phone] Echo Move Up Request Social History Tobacco Use Types Packs/Day Years [...] often do you attend chur ch or pentecostalism services? 1 to 4 times per year 04/01/2021 Do you belong to any clubs o r organizations such as hoahaoism groups, unions, fraternal or athletic groups, or [...] Answer Date Recorded PHQ-2 Score 0 11/14/2018 [facility] of Occupat ional Health - Occupational Stress [...] your living situation today? I have a [facility] place to live 02/11/2023 Education Answer Date Recorded What is the highest level of school you have completed or the highest degree you have received? Master's degree (e.g., MA, MS, Ela, MEd, COMMAND POST SUPERINTENDENT, [employer]) 04/01/2021 Sex and Gender Information Value Date Recorded Sex Assigned at Female 01/22/2018 1:18 PM CDT Gender Identity Female 01/22/2018 1:18 PM CDT Sexual Orientation Straight 01/22/2018 1: 18 PM CDT documented as of this encounter Plan of Treatment Not on file documented as of this encounter Results * (TTE) 2D ECHO DOPPLER COLOR [...] Documents. Rob Cortes M.D. CV ECHO PROCEDURES documented in this encounter Visit Diagnoses Diagnosis Failure Heart (HCC)- Primary Failure Heart (HCC) documented in this encounter Care Teams Superintendent Overhead Distribution Relationship Specialty Start Date End Date Elsewhere, Pcp PCP - General Family Medicine 01/14/18 documented as of this encounter
--- OUTSIDE RECORDS SUMMARY | 2023-11-25 15:22 | XMS_ITS | Clinical Summary ---
Author Organization [facility] Address [address] [place] [address] Care Team Providers Care Cotton Farmworker Name Role Phone Mariah Garcia MD Primary Care Provider [phone] Allergies Active Allergy Reactions Criticality Noted Date Comments Donepezil 02/14/2012 insomnia Memantine 02/14/2012 Head paresthesias insomnia Medications Medication Sig Dispensed Refills Start Date End Date Status CALCIUM CARBONATE (CALCIUM 500 ORAL) Take 2 Tabs by mouth Once Daily. 06/03/2014 Active Multivitamin Oral Cap Take 1 Tab by mouth at bedtime. 06/03/2014 Active Miscellaneous Medical Supply 1 Each by Misc.(Non-Drug; Combo Route) route as directed. Will need INR check every 1-4 weeks as indicated per INR 1 Each 0 04/12/2015 Active acetaminophen (TYLENOL) 500 mg oral Tab Take 2 Tabs by mouth three times a day as needed for Pain. 09/27/2015 Active Denosumab 60 mg/mL SubQ Syringe Inject 1 mL (60 mg) under the skin ONCE for 1 dose. Per endo clinic 1 Syringe 12/11/2016 Active warfarin (COUMADIN) 5 mg oral tablet TAKE 1 TABLET BY MOUTH ONCE DAILY. CHANGE DOSE PER INR 100 tablet 3 12/16/2019 Active clopidogrel (PLAVIX) 75 mg oral tablet TAKE 1 TABLET BY MOUTH ONCE DAILY. 90 tablet 1 06/20/2020 Active gabapentin (NEURONTIN) 300 mg oral capsule TAKE 1 CAPSULE (300 MG) BY MOUTH AT BEDTIME. IN ADDITION TO 100 MG IN AM, & 100 MG IN AFTERNOON 90 capsule 06/22/2020 Active losartan (COZAAR) 50 mg oral tablet Take 1 tablet (50 mg) by mouth at bedtime. 90 tablet 1 07/01/2020 Active furosemide (LASIX) 20 mg oral tablet Take 1 tablet (20 mg) by mouth once daily. 90 tablet 08/01/2020 Active metoprolol succinate, XL, (TOPROL XL) 25 mg oral extended release tablet 24 HR Take 1 tablet (25 mg) by mouth at bedtime. TAKE 1 TABLET BY MOUTH EVERY DAY 90 tablet 08/01/2020 Active mirtazapine (REMERON) 15 mg oral tabletIndications:Ester tobias depressive disorder, single episode, moderate (HCC) Take 1 tablet (15 mg) by mouth at bedtime. 90 tablet 08/01/2020 Active simvastatin (ZOCOR) 20 mg oral tablet TAKE 1 TABLET BY MOUTH EVERYDAY AT BEDTIME 90 tablet 08/01/2020 Active Active Problems Problem Noted Date Diagnosed Date Physical deconditioning 01/11/2019 Low back pain 05/22/2016 Major depressive disorder, single episode, moder ate 04/12/2015 Compression fracture of L1 lumbar vertebra 11/30 CAD (coronary artery disease) 11/07/2013 Overview: Per supervisor filling and packing , Dr. Elizabeth Mitral valve regurgitation 11/07/2013 Overview: Severe on echo 09/2013 Atrial fibrillation 09/23/2013 Overview: For procedures: -hold plavix and coumadin 5 days prior to procedure. -take baby asa daily while plavix and coumadin on hold - restart plavix, coumadin day after procedure -lovenox bridge after procedure until INR therapeutic CHF (congestive heart failure) 09/23/2013 Overview: EF 35% 09/2013 Dementia 10/17/2011 HTN (hypertension), benign 10/17/2011 Hyperlipidemia 10/17/2011 Osteoporosis 10/17/2011 Overview: Alendronate since 2009 Neuropathy 10/17/2011 Immunizations Name Administration Dates Next Due 2012-13 Fluzone, 3 Yrs & Old er (0.5 mL) 02/14/20122012-14 Fluzone High Dose, 6 5 Yrs & Older 03/24/2013 2014-15 Fluzone High Dose, 6 5 Yrs & Older 03/08/2014 Influenza 02/14/2012 Influenza High Dose 03/03/2016, 5,03/08/2014,03/24 Meningococcal MCV4O 05/01/2019 Pneumococcal PCV13 05/21/2016,01/14/2015 Pneumococcal PPSV23 12/11/2016 Tdap 09/27/2015 Family History Medical History Relation Comments Diabetes Father High Blood Pressure Father Stroke Father Heart Disease Mother mi 70's High Blood Pressure Mother Relation Status Comments Father Mother Social History Tobacco Use Types Packs/Day Years Used Date Smoking Tobacco: Never Smokeless Tobacco: Never Alcohol Use Standard Drinks/Week Comments No 0 (1 standard drink = 0.6 oz pur e alcohol) PHQ-2 Answer Date Recorded PHQ9 Total Score, calculated 0 Sex and Gender Information Value Date Recorded Sex Assigned at Not on file Gender Identity Not on file Sexual Orientation Not on file Last Filed Vital Signs Vital Sign Reading Time Taken Comments Blood Pressure 146/78 12/30/2018 12:40 PM CDT Pulse 55 12/30/2018 12:40 PM CDT Temperature 36.3 ??C (97.4 ??F) 12/30/2018 12:40 PM C DT Respiratory Rate 16 01/28/2015 1:00 PM CDT Oxygen Saturation 95% 12/30/2018 12:40 PM CDT Inhaled Oxygen Concentration - - Weight 74.9 kg (165 lb 3.2 oz) 12/30/2018 12:40 PM CDT Height 162.6 cm (5' 4) 12/30/2018 12:40 PM CDT Body Mass Index 28.36 12/30/2018 12:40 PM CDT Plan of Treatment Health Maintenance Due Date Last Done Comments Depression Follow-Up (PHQ-9) 08/05/1936 Zoster Vaccine (1 of 2) 08/05/1985 RSV 60+ Yrs (1 - 1-dose 60+ series) 1995 Yearly Review of HCD 12/30/2019 12/30/2018, 07/11/2017, 05/02/2016, Additional history exists COVID-19 Vaccine ( - 2022-2 4 season) 2023 Influenza Vaccine (Season Ended) 2024 04/01/2019, 03/19/2018, 03/30/2017, Additional history exists Adult Tetanus Booster 09/26/2025 09/27/2015 Pneumococcal 65+ Completed 12/11/2016, , 01/14/2015 Colonoscopy Discontinued Advance Directives For more information, please contact: [phone] * Full Code (Latest Code Status on File) Date Activated Date Inactivated Comments 12/02/2014 3:02 PM Question Answer Comments How was code status determined? PatientFamily * Full Code Date Activated Date Inactivated Comments 11/30/2014 1:19 PM 12/02/2014 3:02 PM Question Answer Comments How was code status determined? Patient Care Teams Cotton Farmworker Relationship Specialty Start Date End Date Mariah Garcia MD PCP - General Family Medicine 10/16/11 [facility] 12/11/16
--- OUTSIDE RECORDS SUMMARY | 2023-11-25 15:22 | XMS_ITS | Encounter Summary ---
Author Organization [facility] Address [address] [place] [address] Care Team Providers Care Pointing Machine Operator Name Role Phone Elsewhere, Pcp Primary Care Provider Unavailabl e Encounter Details Date Type Department Care Team (Latest Contact Info) Description 08/09/2023 Clinical Communication Department of Cardiovascular Medicine in [place], [place] [address] [place] [phone] Agnieszka Jimenez M.B.BKongS., M.H.S. [address] [place] [phone] Social History Tobacco Use Types Packs/Day Years [...] often do you attend chur ch or taoism services? 1 to 4 times per year 04/01/2021 Do you belong to any clubs o r organizations such as voodoo groups, unions, fraternal or athletic groups, or [...] Answer Date Recorded PHQ-2 Score 0 11/14/2018 [facility] - Occupational Stress Questionnaire Answer Date [...] Answer Date Recorded Dental: Regular Dentist No 01/17/20 23 Employment Answer Date Recorded Employment status Retired 02/11/2023 Housing Stability Answer Date Recorded What is your living situation today? I have a [facility] place to live 02/11/2023 Education Answer Date Recorded What is the highest level of school you have completed or the highest degree you have received? Master's degree (e.g., MA, MS, Ela, MEd, DOUGH MOLDER, [employer]RAH) 04/01/2021 Sex and Gender Information Value Date Recorded Sex Assigned at Female 01/22/2018 1:18 PM CDT Gender Identity Female 01/22/2018 1:18 PM CDT Sexual Orientation Straight 01/22/2018 1: 18 PM CDT documented as of this encounter Miscellaneous Notes * Telephone Encounter - Nilsa Villela - 08/09/2023 2:24 PM CST Emily Jimenez, Pt's daughter says pt hospitalized recently for pneumonia. Coming back for a follow up on 09/02 . Does she need an echo then? Labs are scheduled. When she was hospitalized they did only labs and xray.Please let us know. Thanks Nilsa.Radha RAGE SALES CONSULTANT documented in this encounter Plan of Treatment Not on file documented as of this encounter Visit Diagnoses Not on filedocumented in this encounter Care Teams Pointing Machine Operator Relationship Specialty Start Date End Date Elsewhere, Pcp PCP - General Family Medicine 01/14/18 documented as of this encounter
--- OUTSIDE RECORDS SUMMARY | 2023-11-25 15:22 | XMS_ITS | Referral Summary ---
Author Organization [facility] Address [address] [place] [address] Care Team Providers Care Clipper Automatic Name Role Phone Mariah Garcia MD Primary Care Provider [phone] Allergies Active Allergy Reactions Criticality Noted Date [...] CAD (coronary artery disease) 11/07/2013 Overview: Per merchant [facility] , Dr. Elizabeth Mitral valve regurgitation 11/07/2013 [...] 10/17/2011 Immunizations Name Administration Dates Next Due 2011- Fluzone, 3 Yrs & Old er (0.5 mL) 02/14/20122012-14 Fluzone High Dose, 6 5 Yrs & Older 03/24/20132013-15 Fluzone High Dose, 6 5 Yrs & Older 03/08/2014 Influenza 02/14/2012 Influenza High Dose 03/03/2016, 5,03/08/2014,03/24 Meningococcal MCV4O 05/01/2019 Pneumococcal PCV13 05/21/2016,01/14/2015 Pneumococcal PPSV23 12/11/2016 Tdap 09/27/2015 Social History Tobacco Use Types [...] 12/30/2018 12:40 PM CDT Plan of Treatment Not on file Insurance Payer Benefit Plan / Group Subscriber ID Effective Dates Phone Address Type MEDICA MEDICA DUAL SOLUTION/MSH O [id number] 2015-Pre sent [address] [address] [place] [address] Medicare Advantage [facility] MEDICARE [facility] MEDICARE [id number] 2008-Pre sent [phone] [employer] [address], [address] [place] [address] Medicare Advance Directives For more information, please contact: [phone] * Full Code (Latest Code Status on File) Date Activated Date Inactivated Comments 12/02/2014 3:02 PM Question Answer Comments How was code status determined? PatientFamily * Full Code Date Activated Date Inactivated Comments 11/30/2014 1:19 PM 12/02/2014 3:02 PM Question Answer Comments How was code status determined? Patient Care Teams Clipper Automatic Relationship Specialty Start Date End Date Mariah Garcia MD PCP - General Family Medicine 10/16/11 [facility] 12/11/16
--- OUTSIDE RECORDS SUMMARY | 2023-11-25 15:22 | XMS_ITS | Encounter Summary ---
Author Organization [facility] Address [address] [place] [address] Care Team Providers Care Office Secretary Name Role Phone Elsewhere, Pcp Primary Care Provider Unavailabl e Reason for Referral * Outpatient (Routine) - Closed Specialty Diagnoses / Procedures Referred By Contac t Referred To Contact Diagnoses Failure Heart (HCC) Procedures Echo Transthoracic (TTE) Rob Cortes M.D. [address] [place] [address] [facility] Referral ID Status Reason Start Date Expiration Date Visits Re quested Visits Authorized [id number] Closed 08/09/2023 08/08/2024 1 1 Reason for Visit * Outpatient (Routine) - Closed Specialty Diagnoses / Procedures Referred By Contac t Referred To Contact Diagnoses Failure Heart (HCC) Procedures Echo Transthoracic (TTE) Rob Cortes M.D. [address] [place] [address] [facility] Referral ID Status Reason Start Date Expiration Date Visits Re quested Visits Authorized [id number] Closed 08/09/2023 08/08/2024 1 1 Encounter Details Date Type Department Care Team (Latest Contact Info) Description 09/13/2023 12:16 PM CDT - 09/13/2023 11:59 PM CDT Hospital Encounter Department of Cardiovascular Diseases in [place], [place] [address] [place] [address] Rob Cortes M.D. [address] [place] [address] Failure Heart (HCC) Discharge Disposition: Home or [...] 04/01/2021 How often do you attend chur or presybeterian services? 1 to 4 times per year 04/01/2021 Do you belong to any clubs o r organizations such as faith groups, unions, fraternal or athletic groups, or [...] Answer Date Recorded PHQ-2 Score 0 11/14/2018 [facility] [place] [facility] Occupat ional Health - Occupational Stress [...] your living situation today? I have a [facility] place to live 02/11/2023 Education Answer Date Recorded What is the highest level of school you have completed or the highest degree you have received? Master's degree (e.g., MA, MS, Ela, MEd, CAR WASH SUPERVISOR, FARRAH) 04/01/2021 Sex and Gender Information Value [...] mouth 2 (two) times a day. 06/03/2014 carvediloL (COREG) 3.125 mg tabletIndications:Card iomyopathy Ischemic,Chronic Systolic (Congestive) Heart Failure (HCC),Hypertensive Heart And Chronic Kidney Disease With Heart Failure And Unspecified Stage Chronic Kidney Disease (HCC),Atrial Fibrillation Unspecified (HCC) Take 1 tablet (3.125 mg total) by mouth 2 (two) times a day with meals. 180 tablet 3 09/13/2023 09/12/2024 cholecalciferol, vitamin D3, 25 mcg (1,000 Unit) tablet Take 1,000 Units by mouth daily. 02/23/2019 denosumab (PROLIA) 60 mg/mL syringe Inject 60 mg under the skin every 6 (six) months. 12/11/2016 diclofenac sodium (VOLTAREN) 1 % gel Apply topically as needed. Apply to knees as needed. 02/01/2022 Eliquis 2.5 mg tablet Take 1 tablet (2.5 mg total) by mouth 2 (two) times a day. 180 tablet 3 09/13/2023 09/12/2024 fluticasone propionate (FLONASE) 50 mcg/actuation nasal spray Administer 1 spray into each nostril daily. 02/11/2023 gabapentin (NEURONTIN) 300 mg capsule Take 1 capsule (300 mg total) by mouth at bedtime. 30 capsule 01/17/2018 isosorbide mononitrate (IMDUR) 60 mg 24 hr tablet Take 1 tablet (60 mg total) by mouth daily. 90 tablet 3 09/13/2023 09/12/2024 losartan (COZAAR) 100 mg tablet Take 1 tablet (100 mg total) by mouth daily. 90 tablet 3 09/13/2023 09/12/2024 mirtazapine (REMERON) 15 mg tablet Take 15 [...] 09/13/2023 1:47 PM CDT Failure Heart (HCC) documented in this encounter Results * (TTE) 2D ECHO [...] this encounter Visit Diagnoses Diagnosis Failure Heart (HCC) documented in this encounter Care Teams Office Secretary Relationship Specialty Start Date End Date Elsewhere, Pcp PCP - General Family Medicine 01/14/18 documented as of this encounter
--- OUTSIDE RECORDS SUMMARY | 2023-11-25 15:22 | XMS_ITS | Encounter Summary ---
Author Organization [facility] Address [address] [place] [address] Care Team Providers Care Operational Risk Analyst Name Role Phone Elsewhere, Pcp Primary Care Provider Unavailabl e Reason for Visit * Reason Onset Date Comments Echo Move Up Request 08/13/2023 Encounter Details Date Type Department Care Team (Latest Contact Info) Description 08/13/2023 Clinical Communication Department of Cardiovascular Medicine in [place], [place] [address] [place] [address] Rotary Planer Set Up OperatorLv M.D. Echo Move Up Request Social History Tobacco [...] often do you attend chur ch or synagogue services? 1 to 4 times per year 04/01/2021 Do you belong to any clubs o r organizations such as moravian groups, unions, fraternal or athletic groups, or [...] Answer Date Recorded PHQ-2 Score 0 11/14/2018 [facility] [place] of Occupat ional Health - Occupational Stress [...] living situation today? I have a [facility] place to live 02/11/2023 Education Answer Date Recorded What is the highest level of school you have completed or the highest degree you have received? Master's degree (e.g., MA, MS, Ela, MEd, MANAGER SQL, FARRAH) 04/01/2021 Sex and Gender Information Value Date Recorded Sex Assigned at Female 01/22/2018 1:18 PM CDT Gender Identity Female 01/22/2018 1:18 PM CDT Sexual Orientation Straight 01/22/2018 1: 18 PM CDT documented as of this encounter Miscellaneous Notes * Telephone Encounter - Coral Sofia - 08/13/2023 9:05 AM CDT ECHO MOVE UP REQUEST If there is any additional information please add it to the bottom. (I.E. provider request, nursingrequest, etc.) Appt Type: EST Requested Date: 09/13/23 , Time(s): 10:10 am or 12:15 pm, Evening? No (7:30 Echoes are not available on Wednesdays) Are there additional dates?: No When does the provider see (date and time)?: 09/13/23 2pm Are there times that do not work for pt?: No Is testing flexible to accommodate the echo?: Yes Pool for replies: P RST CVD HF PH SCHEDULING documented in this encounter Plan of Treatment Not on file documented as of this encounter Visit Diagnoses Not on filedocumented in this encounter Care Teams Operational Risk Analyst Relationship Specialty Start Date End Date Elsewhere, Pcp PCP - General Family Medicine 01/14/18 documented as of this encounter
--- OUTSIDE RECORDS SUMMARY | 2023-11-25 15:22 | XMS_ITS | Encounter Summary ---
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 [address] [place] [phone] [facility] Referral ID Status Reason Start Date Expiration Date V isits Requested Visits Authorized [id number] Authorized 09/13/2023 09/12/2024 1 1 * Outpatient (Routine) - Authorized Specialty Diagnoses / Procedures Referred By Contac t Referred To Contact Cardiovascular Disease Rob Cortes M.D. [address] [place] [phone] [facility] Referral ID Status Reason Start Date Expiration Date V isits Requested Visits Authorized [id number] Authorized 09/13/2023 03/14/2025 1 1 * Outpatient (Routine) - Authorized Specialty Diagnoses / Procedures Referred By Contac t Referred To Contact Diagnoses Failure Heart (HCC) Cardiomyopathy Ischemic Chronic Systolic (Congestive) Heart Failure (HCC) Hypertensive Heart And Chronic Kidney Disease With Heart Failure And Unspecified Stage Chronic Kidney Disease (HCC) Atrial Fibrillation Unspecified (HCC) Procedures DX Chest AP or PA and Lateral 2 Views Rob Cortes M.D. [address] [place] [phone] [facility] Referral ID Status Reason Start Date Expiration Date V isits Requested Visits Authorized [id number] Authorized 09/13/2023 09/12/2024 1 1 Reason for Visit * Outpatient (Routine) - Closed Specialty Diagnoses / Procedures Referred By Jenni graham Referred To Contact Cardiovascular Disease Diagnoses Failure Heart (HCC) Agnieszka Jimenez M.B.B.S., M.H.S. [address] [place] [phone] [facility] Referral ID Status Reason Start Date Expiration Date Visits Re quested Visits Authorized [id number] Closed 06/05/2023 06/04/2026 1 1 Encounter Details Date Type Department Care Team (Latest Contact Info) Description 09/13/2023 3:00 PM CDT Office Visit Department of Cardiovascular Medicine in [place], [place] [address] [place] [phone] Rob Cortes M.D. [address] [place] [phone] Failure Heart (HCC); Cardiomyopathy Ischemic; Chronic Systolic (Congestive) Heart Failure (HCC); Hypertensive Heart And Chronic Kidney Disease With Heart Failure And Unspecified Stage Chronic Kidney Disease (HCC); Atrial Fibrillation Unspecified (HCC) Social History Tobacco Use Types Packs/Day Years [...] often do you attend chur ch or religion services? 1 to 4 times per year 04/01/2021 Do you belong to any clubs o r organizations such as synagogue groups, unions, fraternal or athletic groups, or [...] Answer Date Recorded PHQ-2 Score 0 11/14/2018 [facility] [place] [facility] - Occupational Stress [...] your living situation today? I have a [facility] place to live 02/11/2023 Education Answer Date Recorded What is the highest level of school you have completed or the highest degree you have received? Master's degree (e.g., MA, MS, Ela, MEd, [employer], [employer]) 04/01/2021 Sex and Gender Information Value Date Recorded Sex Assigned at Female 01/22/2018 1:18 PM CDT Gender Identity Female 01/22/2018 1:18 PM CDT Sexual Orientation Straight 01/22/2018 1: 18 PM CDT documented as of this encounter Last Filed Vital Signs Vital Sign Reading Time Taken Comments Blood Pressure 123/74 09/13/2023 3:07 PM CDT Pulse 80 09/13/2023 3:07 PM CDT Temperature - - Respiratory Rate - - Oxygen Saturation - - Inhaled Oxygen Concentration - - Weight 62.2 kg (137 lb 2 oz) 09/13/2023 3:07 PM CDT Height 146 cm (4' 9.48) 09/13/2023 3:07 PM CDT Body Mass Index 29.18 09/13/2023 3:07 PM CDT documented in this encounter Progress Notes * Rob Cortes M.D. - 09/13/2023 3:00 PM CDT HEART FAILURE SUBSEQUENT VISIT SUBJECTIVE HISTORY OF PRESENT ILLNESS Ms. Enzo Barrow who returns to [facility] for follow-up of heart failure with reduced ejection fraction. She has previously followed with Dr. Simons and more recently with Dr. Jimenez. She has an ejection fraction of approximately 45%. This is felt to be ischemic in etiology. Other cardiac history is notable for atrial fibrillation. She was hospitalized locally with influenza infection. During that hospitalization losartan was increased due to hypertension. She was also transition from warfarin to apixaban anticoagulation due toa supratherapeutic INR (up to 15). Medical therapy for her cardiomyopathy includes low-dose carvedilol and losartan 100 mg daily. She denies orthopnea PND or lower extremity swelling. No chest pain symptoms. She notes that overall she has done well since dismissal from the influenza hospitalization. MEDICATIONS Current Medications: acetaminophen (TYLENOL) 500 mg tablet, Take 1,000 mg by mouth as needed for pain. Taken during the day and at bedtime as needed. Twice daily calcium carbonate (OS-BHARTAH) 1,250 mg (500 mg calcium) tablet, Take 1 tablet by mouth 2 (two) times aday. carvediloL (COREG) 3.125 mg tablet, Take 1 tablet (3.125 mg total) by mouth 2 (two) times a day with meals. cholecalciferol, vitamin D3, 25 mcg (1,000 Unit) tablet, Take 1,000 Units by mouth daily. denosumab (PROLIA) 60 mg/mL syringe, Inject 60 mg under the skin every 6 (six) months. diclofenac sodium (VOLTAREN) 1 % gel, Apply topically as needed. Apply to knees as needed. Eliquis 2.5 mg tablet, Take 1 tablet (2.5 mg total) by mouth 2 (two) times a day. fluticasone propionate (FLONASE) 50 mcg/actuation nasal spray, Administer 1 spray into each nostrildaily. gabapentin (NEURONTIN) 300 mg capsule, Take 1 capsule (300 mg total) by mouth at bedtime. isosorbide mononitrate (IMDUR) 60 mg 24 hr tablet, Take 1 tablet (60 mg total) by mouth daily. losartan (COZAAR) 100 mg tablet, Take 1 tablet (100 mg total) by mouth daily. mirtazapine (REMERON) 15 mg tablet, Take 15 mg by mouth at bedtime. montelukast (SINGULAIR) 10 mg tablet, Take 10 mg by mouth at bedtime. Currently not taking multivitamin tablet, Take 1 tablet by mouth daily. simvastatin (ZOCOR) 20 mg tablet, Take 20 mg by mouth at bedtime. OBJECTIVE BP 123/74 (BP Location: Right arm, Patient Position: Sitting, Cuff Size: Regular) Pulse 80 Ht 146 cm Wt 62.2 kg BMI 29.18 kg/m?? PHYSICAL EXAMINATION General: Very pleasant. In a wheelchair. Heart: JVP mildly elevated. Irregularly irregular rhythm. Very subtle systolic murmur Lungs: Clear. Abdomen: No hepatic enlargement. No masses or tenderness. Extremities: No significant lower extremity edema. ASSESSMENT / PLAN #1 Heart failure with reduced ejection fraction (LVEF 45%) #2 Mitral regurgitation, mild #3 Atrial fibrillation, now on low-dose apixaban #4 Coronary artery disease with PCI to the LAD in 2014 Mrs. Barrow returns for follow-up of heart failure with reduced ejection fraction mitral regurgitation. Her sons who are with her today working to understand if the recent influenza infection impacted her cardiac function. Fortunately she is doing well from a cardiac perspective. She is euvolemic on examination. Her echocardiogram demonstrates stable systolic function with an EF of 45%. There is mild mitral regurgitation. Lower calculated cardiac index noted. In light of her minimal symptoms, comorbidities, and overall goals of care we have elected to continue her current guideline directed medical therapy. At this time there is not a need for diuretic therapy - we discussed signs symptoms that would prompt initiation of diuretic therapy. Family strongly prefers follow-up in [place]. Weplan to see her back in 1 year or sooner if new symptoms. Follow-up appointment could be with 1 of our EP colleagues. She does not require an echocardiogram unless change in symptoms. 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 Chronic Kidney Disease (HCC) Atrial Fibrillation Unspecified (HCC) Expected: 09/12/2024 (Approximate), Expires: 12/12/2024 NT-Pro B-Type Natriuretic Peptide (BNP) Lab Routine Failure Heart (HCC) Cardiomyopathy Ischemic Chronic Systolic (Congestive) Heart Failure (HCC) Hypertensive Heart And Chronic Kidney Disease With Heart Failure And Unspecified Stage Chronic Kidney Disease (HCC) Atrial Fibrillation Unspecified (HCC) Expected: 09/12/2024 (Approximate), Expires: 12/12/2024 DX Chest AP or PA and Lateral 2 Views Imaging RAD - Routine (most inpatients and all outpatients) Failure Heart (HCC) Cardiomyopathy Ischemic Chronic Systolic (Congestive) Heart Failure (HCC) Hypertensive Heart And Chronic Kidney Disease With Heart Failure And Unspecified Stage Chronic Kidney Disease (HCC) Atrial Fibrillation Unspecified (HCC) Expected: 09/12/2024 (Approximate), Expires: 12/12/2024 Comprehensive Metabolic Panel Lab Routine Failure Heart (HCC) Cardiomyopathy Ischemic Chronic Systolic (Congestive) Heart Failure (HCC) Hypertensive Heart And Chronic Kidney Disease With Heart Failure And Unspecified Stage Chronic Kidney Disease (HCC) Atrial Fibrillation Unspecified (HCC) Expected: 09/12/2024 (Approximate), Expires: 12/12/2024 ECG 12 Lead ECG Routine Failure Heart (HCC) Cardiomyopathy Ischemic Chronic Systolic (Congestive) Heart Failure (HCC) Hypertensive Heart And Chronic Kidney Disease With Heart Failure And Unspecified Stage Chronic Kidney Disease (HCC) Atrial Fibrillation Unspecified (HCC) Expected: 09/12/2024 (Approximate), Expires: 12/12/2024 Scheduled Referrals Name Type Priority Associated Diagnoses Order Schedule Cardiovascular Disease office visit (clinic) Outpatient Referral Routine Expect ed: 09/12/2024 (Approximate), Expires: 12/12/2024 documented as of this encounter Visit Diagnoses Diagnosis Failure Heart (HCC) Cardiomyopathy Ischemic Chronic Systolic (Congestive) Heart Failure (HCC) Hypertensive Heart And Chronic Kidney Disease With Heart Failure And Unspecified Stage Chronic Kidney Disease (HCC) Atrial Fibrillation Unspecified (HCC) documented in this encounter Care Teams Forensic Social Worker Relationship Specialty Start Date End Date Elsewhere, Pcp PCP - General Family Medicine 01/14/18 documented as of this encounter
== END 2023-11-25 15:18 | disposition home or self-care (01) ==
LOC: NFLDREF 15:19
PROVIDERS: PCP Internal Medicine; Visit Provider Internal Medicine
DX: I10 Essential (primary) hypertension (principal)
CPT/HCPCS: 80053

== ENCOUNTER 2024-10-20 12:08 | Outpatient (CLI) | payer MEDICARE, SELFPAY | END 2024-10-20 12:09 | disposition home or self-care (01) | LOC: NFLDREF 12:10 | PROVIDERS: PCP Internal Medicine; Visit Provider Internal Medicine | DX: I10 Essential (primary) hypertension (principal); I48.91 Unspecified atrial fibrillation; N39.0 Urinary tract infection, site not specified; B96.89 Other specified bacterial agents as the cause of diseases classified elsewhere | CPT/HCPCS: 80048; 87086 ==

== ENCOUNTER 2024-11-20 16:36 | Outpatient (CLI) | payer MEDICARE, SELFPAY | END 2024-11-20 16:37 | disposition home or self-care (01) | LOC: NFLDREF 11-25 00:54 | PROVIDERS: PCP Internal Medicine; Referring Provider Internal Medicine; Visit Provider Family Medicine | DX: N30.00 Acute cystitis without hematuria (principal); B96.89 Other specified bacterial agents as the cause of diseases classified elsewhere | CPT/HCPCS: 87086 ==

== ENCOUNTER 2025-04-15 10:59 | Outpatient (CLI) | payer MEDICARE, SELFPAY | END 2025-04-15 11:00 | disposition home or self-care (01) | LOC: NFLDREF 04-24 11:06 | PROVIDERS: PCP Internal Medicine; Referring Provider Internal Medicine; Visit Provider Internal Medicine | DX: N30.00 Acute cystitis without hematuria (principal); E78.5 Hyperlipidemia, unspecified; I13.0 Hypertensive heart and chronic kidney disease with heart failure and stage 1 through stage 4 chronic kidney disease, or unspecified chronic kidney disease; I50.9 Heart failure, unspecified; N18.9 Chronic kidney disease, unspecified | CPT/HCPCS: 80053; 80061; 87086 ==